=== PATIENT | male | born 2000 | race Caucasian/White ===

== ENCOUNTER 2018-02-16 15:36 | Emergency (ER) | payer MEDICAID, OTHER ==
[~2018-02-16] VITALS: Ht 172.7 cm; Wt 63.5 kg
[2018-02-16 16:04] VITALS: BP 145/75; PULSE 80; RESP 18; TEMP 99.1; O2SAT 98
--- NOTE | 2018-02-16 19:28 | PD ---
HPI Chief Complaint: GI Complaint Time Seen by Provider: 18:48 Travel History International Travel<30 days: No Contact w/Intl Traveler<30days: No Traveled to known affect area: No History of Present Illness HPI This patient complains of having a spell where he had some discomfort in his left mid chest. He coughed one time and reported there is some flecks of blood. It was an isolated event. He is not coughing or short of breath or having any chest pain anymore. Spell was brief, 10 minutes duration. No alleviating factors. No exacerbating factors. He does not have fever. No night sweats or chills or weight loss. At this time symptoms are mild PFSH Past Medical History Medical History: Denies Significant Hx Diminished Hearing: No Immunizations Current: Yes Past Surgical History Surgical History: No Previous Surgery Social History Alcohol Use: No Tobacco Use: No Substance Use: No Allergies-Medications (Allergen,Severity, Reaction): Coded Allergies: No Known Allergies (Unverified , 02/16/18) Reported Meds & Prescriptions Reported Meds & Active Scripts Active No Active Prescriptions or Reported Medications Review of Systems General / Constitutional: No: Fever Eyes: No: Visual changes HENT: No: Headaches Cardiovascular: Positive: Chest Pain or Discomfort Respiratory: Positive: Cough, No: Shortness of Breath Gastrointestinal: No: Abdominal Pain Genitourinary: No: Dysuria Musculoskeletal: No: Pain Skin: No Rash Neurologic: No: Weakness Psychiatric: No: Depression Endocrine: No: Polydipsia Hematologic/Lymphatic: No: Easy Bruising Physical Exam Narrative GENERAL: Well-nourished, well-developed patient in no apparent distress. SKIN: Focused skin assessment reveals no rash and nodules. Skin is Warm and dry. HEAD: Atraumatic. Normocephalic. EYES: Pupils equal and round. No scleral icterus. No injection or drainage. ENT: No nasal bleeding or discharge. Mucous membranes pink and moist. NECK: Trachea midline. No JVD. CARDIOVASCULAR: Regular rate and rhythm. No murmur appreciated. RESPIRATORY: No accessory muscle use. Clear to auscultation. Breath sounds equal bilaterally. GASTROINTESTINAL: Abdomen soft, non-tender, nondistended. Hepatic and splenic margins not palpable. MUSCULOSKELETAL: No obvious deformities. No clubbing. No cyanosis. No edema. NEUROLOGICAL: Awake and alert. No obvious cranial nerve deficits. Motor grossly within normal limits. Normal speech. PSYCHIATRIC: Appropriate mood and affect; insight and judgment normal. Data Data Last Documented VS Vital Signs Date Time Temp Pulse Resp B/P (MAP) Pulse Ox O2 Delivery O2 Flow Rate FiO2 02/16/18 16:04 99.1 80 18 145/75 (98) 98 Orders Orders Chest, Single Ap (02/16/18 ) Electrocardiogram (02/16/18 ) MDM Medical Decision Making Medical Screen Exam Complete: Yes Emergency Medical Condition: Yes Medical Record Reviewed: Yes Differential Diagnosis Bronchitis, PE, pericarditis Narrative Course I have reviewed the patient's electronic medical record. Reviewed his chest x-ray is normal I reviewed his EKG which shows sinus rhythm without ST elevation This was done to rule out pericarditis type diffuse ST elevations I do not have any clinical suspicion of PE. I do not feel he requires extensive workup to evaluate for this. Symptom was very brief and isolated and has resolved Diagnosis Primary Impression: Non-cardiac chest pain Additional Impression: Cough Additional Instructions: The patient was advised to follow up with their physician and return if they worsen. Med/Other Pt SpecificInfo: Other Scripts No Active Prescriptions or Reported Meds Disposition: 01 DISCHARGE HOME Condition: Stable Maykel Owen MD Feb 16, 2018 19:28
--- NOTE | 2018-02-16 20:12 | RADRPT ---
EXAM DATE/TIME: 02/16/2018 19:34 [facility] COMPARISON: No previous studies available for comparison. INDICATIONS : Chest pain, coughing up blood, and nausea. MEDICAL HISTORY : None. SURGICAL HISTORY : None. ENCOUNTER: Initial ACUITY: 1 day PAIN SCORE: 4/10 LOCATION: chest FINDINGS: A single view of the chest demonstrates the lungs to be symmetrically aerated without evidence of mas s, infiltrate or effusion. The cardiomediastinal contours are unremarkable. Osseous structures are intact. CONCLUSION: No acute disease. Cruz Madrigal MD on February 16, 2018 at 20:10 Board Certified Radiologist. This report was verified electronically.
--- NOTE | 2018-02-17 16:43 | EKG ---
Date Performed: 02/16/2018 Time Performed: 19:49:38 PTAGE: 17 years EKG: Sinus rhythm WITH SINUS ARRHYTHMIA WITH SHORT GA INTERVAL BORDERLINE LEFT AXIS DEVIATION POSSIBLE RIGHT VENTRICUL AR CONDUCTION DELAY VOLTAGE CRITERIA FOR LVH ABNORMAL ECG Compared to PREVIOUS TRACING , there has been a shift in the precordial progression and in the inferi or leads with a borderline left axis deviation. Clinical correlation and repeat EKG should be conside red for possible lead placement changes. PREVIOUS TRACIN05/01/2013 12.17 DOCTOR: Roseline Aguilar Interpretating Date/Time 02/17/2018 16:43:25
== END 2018-02-16 21:19 | disposition home or self-care (01) ==
LOC: NEPD 15:36
DX: R07.89 Other chest pain (principal); R05 Cough; R94.31 Abnormal electrocardiogram [ECG] [EKG]
CPT/HCPCS: 71045; 93005